=== PATIENT | female | born 1960 | race Caucasian/White ===

== ENCOUNTER 2016-06-21 07:03 | Day surgery (SDC) | payer OTHER ==
[2016-06-15 11:47] LABS: HEMATOCRIT 44.4 % (36.0-47.0); HEMOGLOBIN 14.8 g/dL (12.0-15.5); MEAN CORPUSCULAR HEMOGLOBIN 31.6 pg (27.0-33.4); MEAN CORPUSCULAR HGB CONC 33.4 g/dL (32.0-36.0); MEAN CORPUSCULAR VOLUME 95 fl (80-97); RED CELL DISTRIBUTION WIDTH 13.9 % (11.5-14.0); WHITE BLOOD COUNT 4.9 10^3/uL (4.0-10.5)
[2016-06-15 12:19] LABS: ANION GAP 11 (5-19); BLOOD UREA NITROGEN 17 mg/dL (7-20); CALCIUM 10.2 mg/dL (8.4-10.2); CARBON DIOXIDE 26 mmol/L (22-30); CHLORIDE 104 mmol/L (98-107); CREATININE RESULT 0.58 mg/dL (0.52-1.25); GLUCOSE 70 mg/dL (75-110); POTASSIUM 4.5 mmol/L (3.6-5.0); SODIUM 140.8 mmol/L (137-145)
[~2016-06-21 07:03] MED LIST: CEFAZOLIN SODIUM 1 GM in DEXTROSE 5%-WATER 50 ML IV PRN; LACTATED RINGERS 1000 ML IV PRN; LIDOCAINE 0.5% INJ-PF (5 MG/ML) 50 ML SDV SUBCUT PRN; NORMAL SALINE 1000 ML 1,000 ML IV PRN
[2016-06-21] MEDS ORDERED: BUPIVACAINE HCL 0.25 % INJ/PF (2.5 MG/1 ML) 30 ML VIAL ONE (07:35)
[2016-06-21] MEDS ORDERED: ONDANSETRON HCL INJ/PF 4 MG/2 ML SDV ONE (09:25)
[2016-06-21] MEDS ORDERED: DEXAMETHASONE SOD PHOSPHATE INJ 4 MG/1 ML VIAL ONE (09:25)
[2016-06-21] MEDS ORDERED: SUCCINYLCHOLINE CHLORIDE INJ 200 MG/10 ML VIAL ONE (09:25)
[2016-06-21] MEDS ORDERED: GLYCOPYRROLATE INJ 0.4 MG/2 ML VIAL ONE (09:25)
[2016-06-21] MEDS ORDERED: NEOSTIGMINE METHYLSULFATE 10 MG/10 ML VIAL ONE (09:25)
[2016-06-21] MEDS ORDERED: ROCURONIUM BROMIDE INJ 50 MG/5 ML VIAL IV ONE (09:25)
[2016-06-21] MEDS ORDERED: FENTANYL CITRATE INJ/PF 250 MCG/5 ML AMPULE ONE (09:55)
[2016-06-21] MEDS ORDERED: HYDROMORPHONE HCL INJ/PF 2 MG/ML AMPULE ONE (09:55)
[2016-06-21] MEDS ORDERED: ACETAMINOPHEN 100 ML IV ONE (09:56)
[2016-06-21] MEDS ORDERED: PROPOFOL INJ 200 MG/20 ML VIAL IV ONE (09:56)
[2016-06-21] MEDS ORDERED: EPHEDRINE SULFATE INJ 50 MG/1 ML AMPULE ONE (09:56)
[2016-06-21] MEDS ORDERED: MIDAZOLAM 2 MG/2 ML INJ ONE (09:56)
[2016-06-21] MEDS ORDERED: DIPHENHYDRAMINE HCL 50 MG/ML VIAL IV PRN (10:43)
[2016-06-21] MEDS ORDERED: MEPERIDINE HCL/PF INJ 25 MG/1 ML DISP.SYRIN IV PRN (10:43)
[2016-06-21] MEDS ORDERED: OXYCODONE-ACETAMINOPHEN 5-325 MG TABLET PO PRN ×3 (10:43→11:59)
[2016-06-21] MEDS ORDERED: FENTANYL CITRATE INJ/PF 100 MCG/2 ML AMPUL IV PRN ×3 (10:43)
[2016-06-21] MEDS ORDERED: MORPHINE SULFATE 10 MG/ML INJ IV PRN (10:43)
[2016-06-21] MEDS ORDERED: PROMETHAZINE HCL INJ 25 MG/1 ML VIAL IV PRN ×2 (10:43)
[2016-06-21] MEDS ORDERED: ONDANSETRON HCL INJ/PF 4 MG/2 ML SDV IV PRN (11:59)
[2016-06-21] MEDS: FENTANYL CITRATE INJ/PF 100 MCG/2 ML AMPUL ONE ×2 (12:32→12:37)
[2016-06-21] MEDS ORDERED: ENOXAPARIN SODIUM INJ 40 MG/0.4 ML DISP.SYRIN SUBCUT ONE (13:00)
[2016-06-21] MEDS: MORPHINE SULFATE 10 MG/ML INJ IV PRN ×3 (14:42→23:20)
--- NOTE | 2016-06-21 17:52 | Operative Report ---
Operative Report DATE OF SURGERY: 06/21/16 PREOPERATIVE DIAGNOSIS: Incisional hernia POSTOPERATIVE DIAGNOSIS: Incisional hernia OPERATION: Laparoscopic incisional hernia repair with mesh SURGEON: ROBBIE ANDREWS ANESTHESIA: GA TISSUE REMOVED OR ALTERED: None COMPLICATIONS: None ESTIMATED BLOOD LOSS: minimal INTRAOPERATIVE FINDINGS: Supraumbilical 5 cm hernia defect with herniated omentum. Omental adhesions to the midline. PROCEDURE: Informed consent was obtained. Patient was brought to the operating room placed on the operating room table in supine position. After satisfactory induction of general anesthesia patient's abdomen was prepped and draped in usual sterile fashion. A subxiphoid midline incision was made and dissection carried out through the fascia and the peritoneal cavity entered without difficulty. Jacobson trocar was inserted pneumoperitoneum produced with good patient toleration. Two 5 mm trochars were placed in the left lateral abdomen and these trochars removed to the right lateral abdomen near the end of the case for the fixation of the mesh. Laparoscopic view demonstrated dense midline adhesions consisting of omentum. These adhesions were taken down taking great care to avoid injury to the underlying bowel. The lower abdomen looked good with no hernias however at the supraumbilical region there was a 5 x 5 cm hernia. Hemostasis appeared to be good. A 15 x 15 cm Covidien parietex composite mesh was used. It was affixed at 4 quadrants using trans-fascial sutures. It was affixed circumferentially using absorbable tacking device. Of note the insufflation pressure was reduced prior to the fixation. The mesh laid flat with excellent coverage. Hemostasis appeared excellent. All trochars were removed under the direct vision a laparoscope to ensure hemostasis. The Jacobson trocar site fascial defect was closed with interrupted Vicryl sutures. Skin was closed with subcuticular interrupted Monocryl sutures. Marcaine was injected at the port sites. Patient tolerated procedure well with no apparent complications and was taken to the recovery area in stable condition.
--- NOTE | 2016-06-21 18:08 | PDOC PROGRESS REPORT ---
Subjective Progress Note for:: 06/21/16 Subjective:: Feels well. Mild abdominal pain. Physical Exam Vital Signs: Temp Pulse Resp BP Pulse Ox 98.2 F 57 L 16 113/62 93 06/21/16 17:30 06/21/16 17:30 06/21/16 17:30 06/21/16 17:30 06/21/16 17:30 Intake & Output 06/20/16 06/21/16 06/22/16 06:59 06:59 06:59 Intake Total 1450 Output Total 165 Balance 1285 Weight 71.67 kg General appearance: PRESENT: no acute distress Respiratory exam: PRESENT: clear to auscultation dominik Cardiovascular exam: PRESENT: RRR GI/Abdominal exam: PRESENT: other - Soft, nondistended, appropriate tenderness at the mid abdomen. Musculoskeletal exam: PRESENT: other - No tenderness no swelling Results Laboratory Results: 06/15/16 10:53 06/15/16 10:53 Assessment & Plan - Diagnosis (1) Incisional hernia Is this a current diagnosis for this admission?: YesPlan: Status post laparoscopic incisional hernia repair with mesh. Patient looks good. Will recheck in the morning if she is not nauseated will start diet in the morning. Encourage ambulation.
[2016-06-21] MEDS: DEXTROSE 5%-1/2 NORMAL SALINE 1,000 ML IV PRN (18:59)
[2016-06-22] MEDS: MORPHINE SULFATE 10 MG/ML INJ IV PRN ×3 (03:53→13:13)
[2016-06-22] MEDS ORDERED: ENOXAPARIN SODIUM INJ 40 MG/0.4 ML DISP.SYRIN SUBCUT SCH (08:00)
[2016-06-22] MEDS: DEXTROSE 5%-1/2 NORMAL SALINE 1,000 ML IV PRN (12:28)
[2016-06-22] MEDS ORDERED: ALBUTEROL SULFATE HFA (90 MCG/PUFF) 200 PUFF/8.5 GM MDI IH ONE (12:30)
[2016-06-22] MEDS ORDERED: FLUTICASONE/SALMETEROL DISKUS 250-50 MCG/DOSE IH ONE (13:00)
--- NOTE | 2016-06-22 13:03 | PDOC DISCHARGE SUMMARY ---
Discharge Summary (SDC) - Discharge Final Diagnosis: incisional hernia Date of Surgery: 06/21/16 Discharge Date: 06/22/16 Condition: Good Treatment or Instructions: Laparoscopic incisional hernia repair with mesh. May discharge patient home. Follow-up with me in 2 weeks. Stay active but avoid strenuous activity. Advance diet as tolerated to solid diet at home. If constipated after 2 more days may take laxative. Call me for any problems. Prescriptions: Oxycodone HCl/Acetaminophen [Percocet 7.5-325 Mg Tablet] 1 each PO Q4HP PRN #30 tablet PRN Reason: For Pain Discharge Activity: Activity As Tolerated - Stay active but avoid strenuous activity. Report the Following to Your Physician Immediately: Vomiting, Fever over 101 Degrees, Unusual Bleeding, Redness, Drainage-Foul Smelling
--- NOTE | 2016-06-22 13:04 | PDOC PROGRESS REPORT ---
Subjective Progress Note for:: 06/22/16 Subjective:: Feels well. No nausea and no abdominal distention. Tolerating clear liquids well. Physical Exam Vital Signs: Temp Pulse Resp BP Pulse Ox 98.2 F 57 L 16 130/64 H 92 06/22/16 11:42 06/22/16 11:42 06/22/16 11:42 06/22/16 11:42 06/22/16 11:42 Intake & Output 06/21/16 06/22/16 06/23/16 06:59 06:59 06:59 Intake Total 1550 Output Total 365 Balance 1185 Weight 72 kg 72 kg GI/Abdominal exam: PRESENT: other - Soft, nondistended, appropriate tenderness. Results Laboratory Results: 06/15/16 10:53 06/15/16 10:53 Assessment & Plan - Diagnosis (1) Incisional hernia Is this a current diagnosis for this admission?: YesPlan: Doing well tolerating liquids well. Abdomen soft. Will discharge patient home. Encourage activity at home. Follow-up in a couple weeks.
[2016-06-22 14:01] VITALS: BP 101/44
[2016-06-22] MEDS ORDERED: ALBUTEROL SULFATE HFA (90 MCG/PUFF) 200 PUFF/8.5 GM MDI IH SCH (22:00)
[2016-06-22] MEDS ORDERED: FLUTICASONE/SALMETEROL DISKUS 250-50 MCG/DOSE IH SCH (22:00)
== END 2016-06-22 14:20 | disposition home or self-care (01) ==
LOC: OROUT 07:03 → 2N 13:17 → OROUT 06-22 14:20
PROVIDERS: ATTEND Surgery
PROC: 0WUF4JZ Supplement Abdominal Wall with Synthetic Substitute, Percutaneous Endoscopic Approach (ICD-10-PCS; principal; 2016-06-21 10:00)
DX: K43.2 Incisional hernia without obstruction or gangrene (principal); J45.909 Unspecified asthma, uncomplicated; Z79.51 Long term (current) use of inhaled steroids
CPT/HCPCS: 36415; 85027; 80048; 49654; C1781; J2250; J0690; J3490 ×4; J1100; J3010 ×2; J2270 ×2; J1650 ×2; J1170; J0330; J2405; J2704; J0131; 752

== ENCOUNTER 2017-11-07 10:53 | Emergency (ER) | payer SELFPAY ==
--- NOTE | 2017-11-07 11:12 | ER Document Report ---
ED Medical Screen (RME) - General Chief Complaint: Abdominal Pain Stated Complaint: ABDOMINAL PAIN Time Seen by Provider: 11/07/17 11:03 Mode of Arrival: Ambulatory Information source: Patient TRAVEL OUTSIDE OF THE [place] IN LAST 30 DAYS: No - HPI Notes: 11/07/17 11:09 57-year-old female presents emergency department with complaints of left lower quadrant abdominal pain and bright red blood per rectum. Patient states that the abdominal pain started 3 days ago. It has been constant in nature. Patient describes the pain as a sharp and stabbing sensation located in the LLQ. No radiation of the pain. No alleviating or exacerbating factors. Patient states that today she had bright red blood per rectum. Patient states that she has had a bowel resection secondary to diverticulitis in the past. Patient states that her pains feels similar to previous. I have greeted and performed a rapid initial assessment of this patient. A comprehensive ED assessment and evaluation of the patient, analysis of test results and completion of the medical decision making process will be conducted by additional ED providers. PHYSICAL EXAMINATION: GENERAL: Well-appearing, well-nourished and in no acute distress. HEAD: Atraumatic, normocephalic. EYES: Pupils equal round extraocular movements intact, conjunctiva are normal. ENT: Nares patent NECK: Normal range of motion LUNGS: No respiratory distress Musculoskeletal: Normal range of motion NEUROLOGICAL: Normal speech, normal gait. PSYCH: Normal mood, normal affect. SKIN: Warm, Dry, normal turgor, no rashes or lesions noted. - Related Data Allergies/Adverse Reactions: cat dander Allergy (Intermediate, Verified 11/07/17 10:55) Sneezing feathers Allergy (Intermediate, Verified 11/07/17 10:55) Sneezing Past Medical History - Past Medical History Cardiac Medical History: Denies: Hx Coronary Artery Disease, Hx Heart Attack, Hx Hypertension, Hx Pulmonary Embolism Pulmonary Medical History: Reports: Hx Asthma - ADVAIR, VENTOLIN Denies: Hx Bronchitis, Hx COPD, Hx Pneumonia, Hx Respiratory Failure, Hx Sleep Apnea, Hx Tuberculosis Neurological Medical History: Denies: Hx Cerebrovascular Accident, Hx Seizures Renal/ Medical History: Denies: Hx End Stage Renal Disease, Hx Kidney Stones, Hx Peritoneal Dialysis GI Medical History: Denies: Hx Crohn's Disease, Hx Gastroesophageal Reflux Disease, Hx Hiatal Hernia, Hx Irritable Bowel, Hx Liver Failure, Hx Pancreatitis , Hx Ulcer Musculoskeltal Medical History: Denies Hx Arthritis Past Surgical History: Reports: Hx Hysterectomy, Hx Tonsillectomy. Denies: Hx Appendectomy, Hx Bowel Surgery, Hx Section, Hx Cholecystectomy, Hx Colostomy, Hx Coronary Artery Bypass Graft, Hx Gastric Bypass Surgery, Hx Herniorrhaphy, Hx Mastectomy, Hx Pacemaker, Hx Tubal Ligation - Immunizations Hx Diphtheria, Pertussis, Tetanus Vaccination: Yes Physical Exam - Vital signs Vitals: Temp Pulse Resp BP Pulse Ox 97.8 F 72 16 139/71 H 96 11/07/17 10:58 11/07/17 10:58 11/07/17 10:58 11/07/17 10:58 11/07/17 10:58 Course - Vital Signs Vital signs: Temp Pulse Resp BP Pulse Ox 97.8 F 72 16 139/71 H 96 11/07/17 10:58 11/07/17 10:58 11/07/17 10:58 11/07/17 10:58 11/07/17 10:58 Doctor's Discharge - Discharge Referrals: FELIPE SIMONS MD [Primary Care Provider] - Follow up as needed
[2017-11-07 11:47] LABS: ABSOLUTE EOSINOPHILS # (AUTO) 0.1 10^3/uL (0.0-0.6); ABSOLUTE LYMPHOCYTES (AUTO) 1.6 10^3/uL (0.5-4.7); ABSOLUTE MONOCYTES (AUTO) 0.6 10^3/uL (0.1-1.4); ABSOLUTE NEUT (AUTO) 3.2 10^3/uL (1.7-8.2); BASOPHILS % (AUTO) 0.2 % (0-2); EOSINOPHILS % (AUTO) 1.7 % (0-6); HEMOGLOBIN 14.5 g/dL (12.0-15.5); LYMPHOCYTES % (AUTO) 29.6 % (13-45); MEAN CORPUSCULAR HEMOGLOBIN 32.3 pg (27.0-33.4); MEAN CORPUSCULAR HGB CONC 34.6 g/dL (32.0-36.0); MEAN CORPUSCULAR VOLUME 93 fl (80-97); PLATELET COUNT 248 10^3/uL (150-450); RED CELL DISTRIBUTION WIDTH 13.7 % (11.5-14.0); SEGMENTED NEUTROPHILS % (AUTO) 57.5 % (42-78); TOTAL CELLS COUNTED % (AUTO) 100 %; WHITE BLOOD COUNT 5.5 10^3/uL (4.0-10.5)
--- NOTE | 2017-11-07 11:57 | ER Document Report ---
ED General - General Chief Complaint: Abdominal Pain Stated Complaint: ABDOMINAL PAIN Time Seen by Provider: 11/07/17 11:03 Mode of Arrival: Ambulatory TRAVEL OUTSIDE OF THE [place] IN LAST 30 DAYS: No - HPI Notes: 57-year-old female presents with left lower quadrant sharp pain 8/10 without radiation started a day and a half ago nothing is made it better or worse. It is been associated with an episode of bright red blood per rectum this morning. One time no additional episodes of bright red blood per rectum. Patient denies fatigue shortness of breath chest pain or cough. Has history of diverticulitis in the past. Concerned she may have another episode of diverticulitis. - Related Data Allergies/Adverse Reactions: cat dander Allergy (Intermediate, Verified 11/07/17 10:55) Sneezing feathers Allergy (Intermediate, Verified 11/07/17 10:55) Sneezing Past Medical History - General Information source: Patient - Social History Smoking Status: Current Every Day Smoker Chew tobacco use (# tins/day): No Frequency of alcohol use: Heavy Drug Abuse: Marijuana Family History: None Patient has suicidal ideation: No Patient has homicidal ideation: No - Past Medical History Cardiac Medical History: Denies: Hx Coronary Artery Disease, Hx Heart Attack, Hx Hypertension, Hx Pulmonary Embolism Pulmonary Medical History: Reports: Hx Asthma - ADVAIR, VENTOLIN Denies: Hx Bronchitis, Hx COPD, Hx Pneumonia, Hx Respiratory Failure, Hx Sleep Apnea, Hx Tuberculosis Neurological Medical History: Denies: Hx Cerebrovascular Accident, Hx Seizures Renal/ Medical History: Denies: Hx End Stage Renal Disease, Hx Kidney Stones, Hx Peritoneal Dialysis GI Medical History: Denies: Hx Crohn's Disease, Hx Gastroesophageal Reflux Disease, Hx Hiatal Hernia, Hx Irritable Bowel, Hx Liver Failure, Hx Pancreatitis , Hx Ulcer Musculoskeletal Medical History: Denies Hx Arthritis Past Surgical History: Reports: Hx Hysterectomy, Hx Tonsillectomy. Denies: Hx Appendectomy, Hx Bowel Surgery, Hx Section, Hx Cholecystectomy, Hx Colostomy, Hx Coronary Artery Bypass Graft, Hx Gastric Bypass Surgery, Hx Herniorrhaphy, Hx Mastectomy, Hx Pacemaker, Hx Tubal Ligation - Immunizations Hx Diphtheria, Pertussis, Tetanus Vaccination: Yes Review of Systems - Review of Systems Notes: REVIEW OF SYSTEMS: CONSTITUTIONAL: -fevers, -chills EENT: -eye pain, -difficulty swallowing, -nasal congestion CARDIOVASCULAR: -chest pain, -syncope. RESPIRATORY: -cough, -SOB GASTROINTESTINAL: +abdominal pain, -nausea, -vomiting, -diarrhea GENITOURINARY: -dysuria, -hematuria MUSCULOSKELETAL: -back pain, -neck pain SKIN: -rash or skin lesions. HEMATOLOGIC: -easy bruising or bleeding. LYMPHATIC: -swollen, enlarged glands. NEUROLOGICAL: -altered mental status or loss of consciousness, -headache, - neurologic symptoms PSYCHIATRIC: -anxiety, -depression. ALL OTHER SYSTEMS REVIEWED AND NEGATIVE. Physical Exam - Vital signs Vitals: Temp Pulse Resp BP Pulse Ox 97.8 F 72 16 139/71 H 96 11/07/17 10:58 11/07/17 10:58 11/07/17 10:58 11/07/17 10:58 11/07/17 10:58 - Notes Notes: PHYSICAL EXAMINATION: GENERAL: Well-appearing, well-nourished and in no acute distress. HEAD: Atraumatic, normocephalic. EYES: Pupils equal round and reactive to light, extraocular movements intact, sclera anicteric, conjunctiva are normal. ENT: nares patent, oropharynx clear without exudates. Moist mucous membranes. NECK: Normal range of motion, supple without lymphadenopathy LUNGS: Breath sounds clear to auscultation bilaterally and equal. No wheezes rales or rhonchi. HEART: Regular rate and rhythm without murmurs ABDOMEN: Left lower quadrant tenderness, negative Streeter's EXTREMITIES: Normal range of motion, no pitting or edema. No cyanosis. NEUROLOGICAL: Cranial nerves grossly intact. Normal speech, normal gait. Normal sensory and motor exams. PSYCH: Normal mood, normal affect. SKIN: Warm, Dry, normal turgor, no rashes or lesions noted. Course - Re-evaluation Re-evalutation: 11/07/17 12:43 Pleasant elderly female presents with left lower quadrant pain. Patient still tolerating oral intake. Not requiring IV analgesia at this time. In reviewing patient's records. She does have history of diverticulitis status post resection about 2 years ago. Patient's extensive lab workup shows preserved kidney function, negative leukocytosis. No dehydration. Patient does not want to be admitted to the hospital does not want additional CAT scan that she has had so many. Will diagnose patient with diverticulitis. Will initiate outpatient therapy with Augmentin, oral opioids and antiemetics. Patient encouraged a bland diet follow-up PCP strict return precautions - Vital Signs Vital signs: Temp Pulse Resp BP Pulse Ox 97.8 F 72 17 117/77 92 11/07/17 10:58 11/07/17 10:58 11/07/17 12:01 11/07/17 12:01 11/07/17 12:01 - Laboratory Result Diagrams: 11/07/17 11:20 11/07/17 11:20 Laboratory results interpreted by me: 11/07/17 11/07/17 11:20 11:20 Glucose 133 H Urine Ascorbic Acid 20 H - EKG Interpretation by Me Additional EKG results interpreted by me: 11/07/17 12:00 Normal sinus rhythm 63 bpm, no ST elevations or depressions, normal QRS, normal TN Discharge - Discharge Clinical Impression: Diverticulitis Condition: Stable Disposition: HOME, SELF-CARE Instructions: Diverticulitis ([facility]) Prescriptions: Amox Tr/Potassium Clavulanate [Augmentin 875-125 Tablet] 1 tab PO BID 10 Days tablet Ondansetron [Zofran Odt 4 mg Tablet] 1 - 2 tab PO Q4H PRN #15 tab.rapdis PRN Reason: For Nausea/Vomiting Oxycodone HCl [Oxycodone HCl 10 MG Tablet] 1 - 2 tab PO Q6H PRN #15 tablet PRN Reason: PAIN Referrals: FELIPE SIMONS MD [NO LOCAL MD] - Follow up as needed
[2017-11-07 12:16] LABS: ALANINE AMINOTRANSFERASE 32 U/L (9-52); ALBUMIN 4.6 g/dL (3.5-5.0); ALKALINE PHOSPHATASE 89 U/L (38-126); ANION GAP 14 (5-19); ASPARTATE AMINO TRANSFERASE 29 U/L (14-36); BILIRUBIN,DIRECT 0.3 mg/dL (0.0-0.4); BILIRUBIN,TOTAL 0.5 mg/dL (0.2-1.3); BLOOD UREA NITROGEN 19 mg/dL (7-20); CARBON DIOXIDE 27 mmol/L (22-30); CHLORIDE 104 mmol/L (98-107); GLUCOSE 133 mg/dL (75-110); LIPASE 99.4 U/L (23-300); SODIUM 144.6 mmol/L (137-145); TOTAL PROTEIN 7.7 g/dL (6.3-8.2)
[2017-11-07 12:33] LABS: APPEARANCE,URINE TURBID; BILIRUBIN,URINE NEGATIVE (NEGATIVE); COLOR,URINE YELLOW; GLUCOSE, URINE NEGATIVE (NEGATIVE); KETONES,URINE NEGATIVE (NEGATIVE); LEUKOCYTE ESTERASE,URINE NEGATIVE (NEGATIVE); NITRITE,URINE NEGATIVE (NEGATIVE); PROTEIN,URINE NEGATIVE (NEGATIVE); URINE SPECIFIC GRAVITY 1.023; UROBILINOGEN,URINE NEGATIVE mg/dL (<2.0)
[2017-11-07 13:03] VITALS: BP 121/71
--- NOTE | 2017-11-07 20:36 | EKG REPORT ---
SEVERITY:- ABNORMAL ECG - SINUS RHYTHM NONSPECIFIC INTRAVENTRICULAR CONDUCTION DELAY BORDERLINE INFERIOR Q WAVES : Confirmed by: Yadi Bauman MD 07-Nov-2017 20:36:24
== END 2017-11-07 13:08 | disposition home or self-care (01) ==
LOC: ER 10:53
DX: K57.92 Diverticulitis of intestine, part unspecified, without perforation or abscess without bleeding (principal); R10.32 Left lower quadrant pain; F17.200 Nicotine dependence, unspecified, uncomplicated; Z90.710 Acquired absence of both cervix and uterus
CPT/HCPCS: 36415; 80053; 81001; 83690; 85025; 93005; 93010; 99284

== ENCOUNTER 2018-05-25 10:40 | Emergency (ER) | payer OTHER ==
[2018-05-25] MEDS ORDERED: LIDOCAINE 5% (700 MG) TRANSDERMAL ADH..PATCH TP ONE (10:55)
[2018-05-25] MEDS ORDERED: IBUPROFEN 800 MG TABLET PO ONE (10:55)
--- NOTE | 2018-05-25 10:56 | ER Document Report ---
HPI - HPI Patient complains to provider of: fall Time Seen by Provider: 05/25/18 10:49 Onset: Yesterday Quality of pain: Achy Pain Level: 3 Context: Patient states that she stepped on an icy step yesterday slipping and falling landing on her bottom. Patient complains of low back and sacral pain. Patient also complains of right thumb tenderness. Patient is right-hand dominant. Associated Symptoms: Other - Right thumb, low back pain Exacerbated by: Movement Relieved by: Denies Similar symptoms previously: No Recently seen / treated by doctor: No - ROS ROS below otherwise negative: Yes Systems Reviewed and Negative: Yes All other systems reviewed and negative - NEURO Neurology: DENIES: Headache, Weakness - GASTROINTESTINAL Gastrointestinal: DENIES: Nausea - REPRODUCTIVE Reproductive: DENIES: : - MUSCULOSKELETAL Musculoskeletal: REPORTS: Extremity pain, Back Pain - DERM Skin Color: Ecchymosis Skin Problems: None Past Medical History - General Information source: Patient - Social History Smoking Status: Current Every Day Smoker Smoking Education Provided: Yes Frequency of alcohol use: Occasional Drug Abuse: Marijuana Occupation: food service director Family History: None - Past Medical History Cardiac Medical History: Pulmonary Medical History: Reports: Hx Asthma - ADVAIR, VENTOLIN Musculoskeletal Medical History: Denies Hx Arthritis Past Surgical History: Reports: Hx Bowel Surgery, Hx Hysterectomy, Hx Tonsillectomy - Immunizations Hx Diphtheria, Pertussis, Tetanus Vaccination: Yes Vertical Provider Document - CONSTITUTIONAL Agree With Documented VS: Yes Exam Limitations: No Limitations General Appearance: WD/WN, No Apparent Distress - INFECTION CONTROL TRAVEL OUTSIDE OF THE [place] IN LAST 30 DAYS: No - HEENT HEENT: Atraumatic, Normocephalic - NECK Neck: Normal Inspection - RESPIRATORY Respiratory: Breath Sounds Normal, No Respiratory Distress - CARDIOVASCULAR Cardiovascular: Regular Rate, Regular Rhythm Pulses: Normal: Radial - BACK Back: Abnormal Inspection - Lumbar, sacral midline tenderness, no step-offs or deformities. Patient with ecchymosis to sacral area. negative: CVA Tenderness- Right, CVA Tenderness-Left - MUSCULOSKELETAL/EXTREMETIES Musculoskeletal/Extremeties: MAEW, FROM, Tender - Tenderness to right thumb CMC joint, Edema - 1+ edema to right thumb. negative: Eccymosis - NEURO Level of Consciousness: Awake, Alert, Appropriate Motor/Sensory: No Motor Deficit, No Sensory Deficit Notes: No saddle anesthesia, normal gait - DERM Integumentary: Warm, Dry Course - Re-evaluation Re-evalutation: 05/25/18 12:02 Discuss results of patient's radiology reports with patient, patient encouraged to follow-up with orthopedics for any persistent pain or problems. Patient with degenerative changes noted, no acute fracture noted on x-ray. The patient presents with low back pain without signs of spinal cord compression, cauda equina syndrome, infection, aneurysm, or other serious etiology. The patient is neurologically intact. Given the extremely risk of these diagnoses further testing and evaluation for these possibilities does not appear to be indicated at this time. Patient has been instructed to return if the symptoms worsen or change in any way. - Vital Signs Vital signs: Temp Pulse Resp BP Pulse Ox 98.2 F 70 16 150/76 H 95 05/25/18 10:45 05/25/18 10:45 05/25/18 10:45 05/25/18 10:45 05/25/18 10:45 - Diagnostic Test Radiology reviewed: Image reviewed, Reports reviewed Discharge - Discharge Clinical Impression: Fall Qualifiers: Encounter type: initial encounter Qualified Code(s): W19.XXXA - Unspecified fall, initial encounter Low back pain Qualifiers: Chronicity: acute Back pain laterality: bilateral Sciatica presence: without sciatica Qualified Code(s): M54.5 - Low back pain Sacral contusion Qualifiers: Encounter type: initial encounter Qualified Code(s): S30.0XXA - Contusion of lower back and pelvis, initial encounter Sprain of right thumb Qualifiers: Encounter type: initial encounter Sprain of finger site: unspecified site Qualified Code(s): S63.601A - Unspecified sprain of right thumb, initial encounter Condition: Stable Disposition: HOME, SELF-CARE Instructions: Arthritis ([facility]), Contusion ([facility]), Low Back Pain ([facility]), Oral Narcotic Medication ([facility]), Sprained Thumb ([facility]), Temporary Splint ([facility]) Additional Instructions: Return immediately for any new or worsening symptoms Followup with your primary care provider, call tomorrow to make a followup appointment Wear splint for the next 4 days and then remove. If still having pain follow-up with orthopedics for further evaluation Prescriptions: Hydrocodone/Acetaminophen [[place] 5-325 mg Tablet] 1 tab PO Q6 PRN #15 tablet PRN Reason: Naproxen [Naprosyn 250 Nmg Tablet] 1 tab PO BID #14 tablet Forms: Smoking Cessation Education, Return to Work Referrals: [facility] [Provider Group] - Follow up as needed
--- NOTE | 2018-05-25 11:59 | RADIOLOGY REPORT (SQ) ---
EXAM DESCRIPTION: FINGER RIGHT COMPLETED DATE/TIME: 05/25/2018 11:29 am REASON FOR STUDY: fall injured thumb COMPARISON: None. NUMBER OF VIEWS: Three views. TECHNIQUE: AP, lateral, and oblique images acquired of the right thumb. LIMITATIONS: None. FINDINGS: MINERALIZATION: Normal. BONES: No acute fracture or dislocation. There are old well corticated avulsion fragments off the do rsal and palmar base of the right thumb distal phalanx at the interphalangeal joint. Move SOFT TISSUES: No soft tissue swelling. No foreign body. No joint space widening at the 1st metacarp ophalangeal joint or interphalangeal joint. OTHER: No other significant finding. IMPRESSION: No acute fracture or malalignment. COMMENT: SITE OF TRAUMA/COMPLAINT MARKED/STAMP COMPLETED: YES. TECHNICAL DOCUMENTATION: JOB ID: [id number] [employer] All Rights Reserved Reading location - IP/workstation name: [email or web address]
--- NOTE | 2018-05-25 11:59 | RADIOLOGY REPORT (SQ) ---
EXAM DESCRIPTION: SACRUM AND COCCYX COMPLETED DATE/TIME: 05/25/2018 11:29 am REASON FOR STUDY: fall fall, injured tail bone/coccyx COMPARISON: Lumbar spine films same date NUMBER OF VIEWS: Three views. TECHNIQUE: AP, lateral, and tilt views of the sacrum and coccyx. LIMITATIONS: None. FINDINGS: MINERALIZATION: Normal. BONES: No acute fracture or dislocation. No worrisome bone lesions. SOFT TISSUES: No soft tissue swelling. No foreign body. OTHER: Mild right and left SI joint sclerosis IMPRESSION: No acute fracture or malalignment. TECHNICAL DOCUMENTATION: JOB ID: [id number] [employer]- All Rights Reserved Reading location - IP/workstation name: [email or web address]
--- NOTE | 2018-05-25 12:01 | RADIOLOGY REPORT (SQ) ---
EXAM DESCRIPTION: L SPINE WHOLE COMPLETED DATE/TIME: 05/25/2018 11:29 am REASON FOR STUDY: fall injury, low back pain COMPARISON: None. NUMBER OF VIEWS: Five views including obliques. TECHNIQUE: AP, lateral, oblique, and sacral radiographic images acquired of the lumbar spine. LIMITATIONS: None. FINDINGS: MINERALIZATION: Normal. SEGMENTATION: Normal. No transitional anatomy. ALIGNMENT: Degenerative convex leftward lumbar curvature with asymmetric high-grade disc space loss o f height on the right side at L1-2. VERTEBRAE: Maintained height. No fracture or worrisome bone lesion. DISCS: High-grade disc space narrowing on the right at L1-2 with adjacent vertebral body endplate scl erosis lower lumbar facet arthropathy left greater than right at L3-4 and L4-5. POSTERIOR ELEMENTS: Pedicles and facets are intact. No pars defect or posterior arch defects. HARDWARE: Rectosigmoid anastomotic radha in the pelvis. PARASPINAL SOFT TISSUES: Normal. PELVIS: Mild SI joint sclerosis bilaterally OTHER: No other significant finding. IMPRESSION: No acute findings TECHNICAL DOCUMENTATION: JOB ID: [id number] [employer]- All Rights Reserved Reading location - IP/workstation name: [email or web address]
[2018-05-25 12:12] VITALS: BP 141/73
== END 2018-05-25 12:34 | disposition home or self-care (01) ==
LOC: ER 10:40
DX: S30.0XXA Contusion of lower back and pelvis, initial encounter (principal); S63.601A Unspecified sprain of right thumb, initial encounter; Z90.710 Acquired absence of both cervix and uterus; W00.1XXA Fall from stairs and steps due to ice and snow, initial encounter
CPT/HCPCS: 72110; 72220; 99283

== ENCOUNTER 2018-08-27 09:26 | Observation (INO) | payer OTHER ==
[2018-08-27 09:42] LABS: ABSOLUTE EOSINOPHILS # (AUTO) 0.2 10^3/uL (0.0-0.6); ABSOLUTE LYMPHOCYTES (AUTO) 1.9 10^3/uL (0.5-4.7); ABSOLUTE MONOCYTES (AUTO) 0.5 10^3/uL (0.1-1.4); ABSOLUTE NEUT (AUTO) 3.1 10^3/uL (1.7-8.2); BASOPHILS % (AUTO) 0.3 % (0-2); EOSINOPHILS % (AUTO) 3.3 % (0-6); HEMATOCRIT 41.4 % (36.0-47.0); HEMOGLOBIN 13.9 g/dL (12.0-15.5); LYMPHOCYTES % (AUTO) 32.8 % (13-45); MEAN CORPUSCULAR HEMOGLOBIN 30.9 pg (27.0-33.4); MEAN CORPUSCULAR HGB CONC 33.6 g/dL (32.0-36.0); MEAN CORPUSCULAR VOLUME 92 fl (80-97); MONOCYTES % (AUTO) 8.7 % (3-13); PLATELET COUNT 236 10^3/uL (150-450); RED CELL DISTRIBUTION WIDTH 13.4 % (11.5-14.0); SEGMENTED NEUTROPHILS % (AUTO) 54.9 % (42-78); TOTAL CELLS COUNTED % (AUTO) 100 %; WHITE BLOOD COUNT 5.7 10^3/uL (4.0-10.5)
--- NOTE | 2018-08-27 09:56 | ER Document Report ---
ED General - General Chief Complaint: Chest Pain Stated Complaint: CHEST PAIN Time Seen by Provider: 08/27/18 09:46 TRAVEL OUTSIDE OF THE [place] IN LAST 30 DAYS: No - HPI Notes: Patient is a 57-year-old female with a history of asthma who presents the emergency department by EMS from her family providers office for chest tightness that was radiating to her left shoulder that began about 6 AM this morning. Patient was given aspirin and 1 nitro. Patient states that after the nitro the symptoms did significantly improve and she is currently pain-free. Patient states that she does have an occasional dry cough otherwise. She has been eating and drinking without difficulty. She is urinating normally and having normal bowel movements. No significant cardiopulmonary medical history. Denies any prolonged immobilization, distance travel, recent surgery/trauma, personal cancer history, hormone use, or previous DVT/PE. Denies any headache, fever, URI, sore throat, palpitations, syncope, shortness of breath, wheeze, dyspnea, abdominal pain, nausea/vomiting/diarrhea, urinary retention, dysuria, hematuria, back pain, or rash. - Related Data Allergies/Adverse Reactions: cat dander Allergy (Intermediate, Verified 08/27/18 09:39) Sneezing feathers Allergy (Intermediate, Verified 08/27/18 09:39) Sneezing Past Medical History - Social History Smoking Status: Unknown if Ever Smoked Family History: None Patient has suicidal ideation: No Patient has homicidal ideation: No - Past Medical History Cardiac Medical History: Denies: Hx Coronary Artery Disease, Hx Heart Attack, Hx Hypertension, Hx Pulmonary Embolism Pulmonary Medical History: Reports: Hx Asthma - ADVAIR, VENTOLIN Denies: Hx Bronchitis, Hx COPD, Hx Pneumonia, Hx Respiratory Failure, Hx Sleep Apnea, Hx Tuberculosis Neurological Medical History: Denies: Hx Cerebrovascular Accident, Hx Seizures Renal/ Medical History: Denies: Hx End Stage Renal Disease, Hx Kidney Stones, Hx Peritoneal Dialysis GI Medical History: Denies: Hx Crohn's Disease, Hx Gastroesophageal Reflux Disease, Hx Hiatal Hernia, Hx Irritable Bowel, Hx Liver Failure, Hx Pancreatitis, Hx Ulcer Musculoskeletal Medical History: Denies Hx Arthritis Past Surgical History: Reports: Hx Bowel Surgery, Hx Hysterectomy, Hx Tonsillectomy. Denies: Hx Appendectomy, Hx Section, Hx C holecystectomy, Hx Colostomy, Hx Coronary Artery Bypass Graft, Hx Gastric Bypass Surgery, Hx Herniorrhaphy, Hx Mastectomy, Hx Pacemaker, Hx Tubal Ligation - Immunizations Hx Diphtheria, Pertussis, Tetanus Vaccination: Yes Review of Systems - Review of Systems -: Yes All other systems reviewed and negative Physical Exam - Vital signs Vitals: Pulse Ox 97 08/27/18 09:29 - Notes Notes: PHYSICAL EXAMINATION: GENERAL: Well-appearing, well-nourished and in no acute distress. HEAD: Atraumatic, normocephalic. EYES: Pupils equal round and reactive to light, extraocular movements intact, sclera anicteric, conjunctiva are normal. ENT: Nares patent and without discharge. oropharynx clear without exudates. No tonsilar hypertrophy or erythema. Moist mucous membranes. NECK: Normal range of motion, supple without lymphadenopathy LUNGS: Breath sounds clear to auscultation bilaterally and equal. No wheezes rales or rhonchi. HEART: Regular rate and rhythm without murmurs, rubs, gallops. ABDOMEN: Soft, nontender, nondistended abdomen. No guarding, no rebound. N ormal bowel sounds present. No CVA tenderness bilaterally. Musculoskeletal: FROM to passive/active. Strength 5+/5. Deepa neg. No asymmetry to LE's. Extremities: No cyanosis, clubbing, or edema b/l. Peripheral pulses 2+. Capillary refill less than 3 seconds. NEUROLOGICAL: Normal speech, normal gait. PSYCH: Normal mood, normal affect. SKIN: Warm, Dry, normal turgor, no rashes or lesions noted. Course - Re-evaluation Re-evalutation: 08/27/18 11:40 Patient is an afebrile, well-hydrated, 57-year-old female who presents emergency department for atypical chest pain, since resolved. Vitals are currently acceptable without significant tachycardia, tachypnea, or hypoxia. PE is otherwise unremarkable. Patient is nontoxic-appearing and is tolerating p.o. without difficulty. Labs, EKG, chest x-ray unremarkable at this time. Patient was given nitro which did improve and resolve her chest discomfort earlier. Pt will be admitted to [facility], accepted by Dr. Valerio, for chest pain obs. - Vital Signs Vital signs: Temp Pulse Resp BP Pulse Ox 98.1 F 16 126/67 H 94 08/27/18 09:32 08/27/18 10:01 08/27/18 10:01 08/27/18 10:01 - Laboratory Result Diagrams: 08/27/18 08:50 08/27/18 08:50 Discharge - Discharge Clinical Impression: Atypical chest pain Condition: Stable Disposition: ADMITTED INPATIENT Admitting Provider: Iman (Hospitalist) Unit Admitted: Telemetry
[2018-08-27 10:02] LABS: ALANINE AMINOTRANSFERASE 20 U/L (9-52); ALBUMIN 4.4 g/dL (3.5-5.0); ALKALINE PHOSPHATASE 86 U/L (38-126); ANION GAP 12 (5-19); ASPARTATE AMINO TRANSFERASE 26 U/L (14-36); BILIRUBIN,DIRECT 0.2 mg/dL (0.0-0.4); BILIRUBIN,TOTAL 0.5 mg/dL (0.2-1.3); BLOOD UREA NITROGEN 20 mg/dL (7-20); CALCIUM 10.1 mg/dL (8.4-10.2); CARBON DIOXIDE 26 mmol/L (22-30); CHLORIDE 103 mmol/L (98-107); CREATINE KINASE 49 U/L (30-135); GLUCOSE 108 mg/dL (75-110); POTASSIUM 4.5 mmol/L (3.6-5.0); SODIUM 140.8 mmol/L (137-145); TOTAL PROTEIN 7.3 g/dL (6.3-8.2)
[2018-08-27 10:14] LABS: CREATINE KINASE MB 0.94 ng/mL (<4.55)
[2018-08-27 10:18] LABS: TROPONIN I < 0.012 ng/mL
--- NOTE | 2018-08-27 10:35 | RADIOLOGY REPORT (SQ) ---
EXAM DESCRIPTION: CHEST SINGLE VIEW COMPLETED DATE/TIME: 08/27/2018 9:49 am REASON FOR STUDY: chest pain COMPARISON: 12/07/2015. NUMBER OF VIEWS: One view. TECHNIQUE: Single frontal radiographic view of the chest acquired. LIMITATIONS: None. FINDINGS: LUNGS AND PLEURA: No opacities, masses or pneumothorax. No pleural effusion. MEDIASTINUM AND HILAR STRUCTURES: No masses. Contour normal. HEART AND VASCULAR STRUCTURES: Heart normal in size. Normal vasculature. BONES: No acute findings. HARDWARE: None in the chest. OTHER: No other significant finding. IMPRESSION: NO SIGNIFICANT RADIOGRAPHIC FINDING IN THE CHEST. TECHNICAL DOCUMENTATION: JOB ID: [id number] [employer]- All Rights Reserved Reading location - IP/workstation name: [email or web address]
[2018-08-27] MEDS ORDERED: IBUPROFEN 600 MG TABLET PO PRN (12:39)
[2018-08-27] MEDS ORDERED: ALBUTEROL SULFATE HFA (90 MCG/PUFF) 8 GM MDI (1 MDI/ER DISP) IH PRN (12:39)
--- NOTE | 2018-08-27 12:57 | PDOC H&P ---
History of Present Illness Admission Date/PCP: 08/27/18 11:50 History of Present Illness: ANGELINA PANCHAL is a 57 year old female with a history of asthma and who is a current everyday smoker who presents with a chief complaint of chest pain. She said the pain started this morning around 6:00 while she was at work at [employer]. She said it was a pretty busy day and they were short staffed. She said that she did not really have a pain, it was more of a tightness, and she thought it was her asthma starting to flareup. She did not have her inhaler in her pocket for it was not known whether or not it would have responded to a bronchodilator at that point. She then went to her primary care doctor's office when it opened and was subsequently sent to the ER. She said the discomfort was more in her left shoulder at that point. She said in the ER she was given an aspirin and nitroglycerin and she felt like the discomfort resolved she has not had any recurrence of his symptoms. She says she is never had anything like that happen before. She is never had a stress test or cardiac catheterization or any other cardiac surgery. As noted above, despite the fact that she has asthma she is a every day smoker, she says she is cut back to about a half a pack a day recently because she is trying to quit but she has been smoking for about 30 years. She said her mother has a history of angina but to her knowledge has never been diagnosed with any coronary artery disease and has never had a heart attack. Her father had a heart attack at age 40. Past Medical History Cardiac Medical History: Denies: Coronary Artery Disease, Myocardial Infarction, Hypertension, Pulmonary Embolism Pulmonary Medical History: Reports: Asthma - ADVAIR, VENTOLIN Denies: Bronchitis, Chronic Obstructive Pulmonary Disease (COPD), Pneumonia, Respiratory Failure, Sleep Apnea, Tuberculosis Neurological Medical History: Denies: Seizures Renal/ Medical History: Denies: End Stage Renal Disease GI Medical History: Denies: Crohn's Disease, Gastroesophageal Reflux Disease, Hiatal Hernia Musculoskeltal Medical History: Denies: Arthritis Hematology: Denies: Anemia Past Surgical History Past Surgical History: Reports: Hysterectomy, Tonsillectomy Denies: Appendectomy, Section, Cholecystectomy, Colostomy, Coronary Artery Bypass Graft, Gastric Bypass Surgery, Herniorrhaphy, Mastectomy, Pacemaker, Tubal Ligation Social History Smoking Status: Unknown if Ever Smoked Frequency of Alcohol Use: Occasional Hx Recreational Drug Use: Yes Hx Prescription Drug Abuse: No Family History Family History: CAD Parental Family History Reviewed: Yes - Father had ME age 40, mother has history of angina Children Family History Reviewed: Yes - None known Sibling(s) Family History Reviewed.: Yes - None known Medication/Allergy Home Medications: Fluticasone/Salmeterol [Advair 250-50 Diskus 14 Dose/Diskus] 1 puff IH Q12 06/22/16 Ondansetron [Zofran Odt 4 mg Tablet] 1 - 2 tab PO Q4H PRN #15 tab.rapdis 11/07/17 Albuterol Sulfate [Ventolin Hfa 8 gm Mdi (1 Mdi/ER Disp)] 2 puff IH ASDIR PRN 08/27/18 Gabapentin [Neurontin] 800 mg PO BID 08/27/18 Ibuprofen [Motrin 600 mg Tablet] 600 mg PO Q8HP PRN 08/27/18 Ipratropium/Albuterol Sulfate [Duoneb 3 ml Ampul] 3 ml NEB RTQ6 08/27/18 Oxycodone HCl [Oxycodone HCl 10 MG Tablet] 1 tab PO Q4H PRN 08/27/18 Allergies/Adverse Reactions: cat dander Allergy (Intermediate, Verified 08/27/18 09:39) Sneezing feathers Allergy (Intermediate, Verified 08/27/18 09:39) Sneezing Review of Systems All systems: reviewed and no additional remarkable complaints except as stated - All systems were reviewed and were negative except as noted in the HPI Physical Exam Vital Signs: Temp Pulse Resp BP Pulse Ox 98.1 F 16 126/67 H 94 08/27/18 09:32 08/27/18 10:01 08/27/18 10:01 08/27/18 10:01 Intake & Output 08/26/18 08/27/18 08/28/18 06:59 06:59 06:59 Weight 72.121 kg General appearance: PRESENT: no acute distress, cooperative, well-nourished Head exam: PRESENT: atraumatic, normocephalic Eye exam: PRESENT: EOMI, PERRLA. ABSENT: conjunctival injection, nystagmus, scleral icterus Ear exam: PRESENT: normal external ear exam Mouth exam: PRESENT: moist, neck supple Throat exam: ABSENT: post pharyngeal erythema Neck exam: PRESENT: full ROM. ABSENT: carotid bruit, JVD, lymphadenopathy, meningismus, tenderness, thyromegaly Respiratory exam: PRESENT: clear to auscultation dominik, symmetrical, unlabored. ABSENT: accessory muscle use, prolonged expiratory phas, rales, rhonchi, tachypnea, wheezes Cardiovascular exam: PRESENT: RRR, +S1, +S2. ABSENT: diastolic murmur, systolic murmur Pulses: PRESENT: normal carotid pulses Vascular exam: PRESENT: normal capillary refill GI/Abdominal exam: PRESENT: normal bowel sounds, soft. ABSENT: distended, guarding, rebound, tenderness Extremities exam: ABSENT: clubbing, pedal edema Musculoskeletal exam: PRESENT: ambulatory, normal inspection. ABSENT: deformity Neurological exam: PRESENT: alert, awake, oriented to person, oriented to place, oriented to time, oriented to situation, CN II-XII grossly intact. ABSENT: motor sensory deficit Psychiatric exam: PRESENT: anxious, normal mood Skin exam: PRESENT: dry, warm Results Laboratory Results: 08/27/18 08:50 08/27/18 08:50 08/27/18 08/27/18 08:50 08:50 WBC 5.7 RBC 4.50 Hgb 13.9 Hct 41.4 MCV 92 MCH 30.9 MCHC 33.6 RDW 13.4 Plt Count 236 Seg Neutrophils % 54.9 Lymphocytes % 32.8 Monocytes % 8.7 Eosinophils % 3.3 Basophils % 0.3 Absolute Neutrophils 3.1 Absolute Lymphocytes 1.9 Absolute Monocytes 0.5 Absolute Eosinophils 0.2 Absolute Basophils 0.0 Sodium 140.8 Potassium 4.5 Chloride 103 Carbon Dioxide 26 Anion Gap 12 BUN 20 Creatinine 0.56 Est GFR ( Amer) > 60 Est GFR (Non-Af Amer) > 60 Glucose 108 Calcium 10.1 Total Bilirubin 0.5 AST 26 ALT 20 Alkaline Phosphatase 86 Total Protein 7.3 Albumin 4.4 08/27/18 08/27/18 08:50 08:50 Creatine Kinase 49 CK-MB (CK-2) 0.94 Troponin I < 0.012 Impressions: Chest X-Ray 08/27/18 09:33 IMPRESSION: NO SIGNIFICANT RADIOGRAPHIC FINDING IN THE CHEST. Assessment and Plan - Diagnosis (1) Chest pain Qualifiers: Chest pain type: other chest pain Qualified Code(s): R07.89 - Other chest pain; R07.8 - Other chest pain Is this a current diagnosis for this admission?: Yes Plan: She had chest pressure and pain in the left shoulder while at work engaged in physical activity. This sounds like typical chest pain. It was relieved by nitroglycerin. She is a smoker. She has a family history of ME. She did not want to stay, citing concerns over having a lack of insurance and having other things needed to get done at home, but given the circumstances and her history, she would probably benefit from a cardiac ischemic work-up. She has a pretty typical sounding story with some risk factors for coronary artery disease. We will trend her troponins and keep her on telemetry. Will order stress test for tomorrow. Aspirin daily. - Time Time Spent with patient: 35 or more minutes
[2018-08-27] MEDS ORDERED: ALBUTEROL SULFATE HFA (90 MCG/PUFF) 200 PUFF/8.5 GM MDI IH PRN (14:52)
[2018-08-27] MEDS ORDERED: (PENDING PHARMACY ID) (Fluticasone/Salmeterol 1 PUFF) IH SCH (22:00)
--- NOTE | 2018-08-27 23:03 | EKG REPORT ---
SEVERITY:- ABNORMAL ECG - SINUS RHYTHM NONSPECIFIC INTRAVENTRICULAR CONDUCTION DELAY : Confirmed by: Shahid Matos 27-Aug-2018 23:03:06
[2018-08-28 07:23] LABS: CHOLESTEROL 240.96 mg/dL (0-200); TRIGLYCERIDES 131 mg/dL (<150)
[2018-08-28 07:34] LABS: DIRECT LDL 152 mg/dL (<100)
[2018-08-28] MEDS ORDERED: FLUTICASONE/VILANTEROL 200-25 MCG/DOSE IH SCH (10:00)
[2018-08-28] MEDS ORDERED: ASPIRIN 325 MG TABLET PO SCH (10:00)
[2018-08-28] MEDS ORDERED: REGADENOSON INJ 0.4 MG/5 ML DISP.SYRIN IV ONE (12:24)
[2018-08-28 15:03] VITALS: BP 121/68
--- NOTE | 2018-08-30 20:41 | PDOC DISCHARGE SUMMARY ---
General - Admit/Disc Date/PCP Admission Date/Primary Care Provider: 08/27/18 11:50 Discharge Date: 08/28/18 - Discharge Diagnosis (1) Atypical chest pain Is this a current diagnosis for this admission?: Yes Summary: The patient serial troponins as well as Cardiolite stress test were negative. She was discharged home and encouraged to take an aspirin daily and follow-up with her primary care provider. (2) Hypercholesterolemia Is this a current diagnosis for this admission?: Yes Summary: A lipid profile was performed. The patient's total cholesterol was 240 with an LDL of 150. I did not start a new medication but I did encourage the patient to discuss this with her primary care provider at follow-up. - Additional Information Resuscitation Status: Full Code Discharge Diet: Cardiac Discharge Activity: Activity As Tolerated Home Medications: Fluticasone/Salmeterol [Advair 250-50 Diskus 14 Dose/Diskus] 1 puff IH Q12 06/22/16 Albuterol Sulfate [Ventolin Hfa 8 gm Mdi (1 Mdi/ER Disp)] 2 puff IH Q6HP PRN MDD 8 PUFFS/DAY 08/27/18 Gabapentin [Neurontin] 800 mg PO BID 08/27/18 Ipratropium/Albuterol Sulfate [Duoneb 3 ml Ampul] 3 ml NEB RTQ6HP PRN 08/27/18 Ondansetron [Zofran Odt 4 mg Tablet] 4 mg PO Q12HP PRN 08/27/18 Oxycodone HCl [Oxycodone HCl 10 MG Tablet] 1 tab PO Q4HP PRN 08/27/18 Aspirin [Aspirin 325 mg Tablet] 325 mg PO DAILY tablet 08/28/18 History of Present Illness Patient complains of: Chest pain History of Present Illness: ANGELINA PANCHAL is a 57 year old female with a history of asthma and is a current smoker. She states that at approximately 6:00 this morning (while at work at [employer]) she was quite busy. She felt some tightness in her chest and thought it might of been her asthma. She does not have a rescue inhaler with her and so this was not attempted. Later in the morning when her primary care provider's office was open she presented. She was sent immediately to the emergency department. She did report that aspirin and sublingual nitroglycerin resolved the pain. Because of her symptom complex and risk factors she was referred to the hospital service for admission. Hospital Course Hospital Course: She had an unremarkable hospital course. She had no recurrence of pain. Serial troponins were negative as well as her Cardiolite stress test. She was discharged with instructions to follow-up with her primary care provider's office. I did encourage her to take 1 aspirin daily (81 mg) and consider statin therapy for markedly elevated LDL levels. Physical Exam Vital Signs: Temp Pulse Resp BP Pulse Ox 98.5 F 72 12 121/68 96 08/28/18 15:00 08/28/18 15:00 08/28/18 15:00 08/28/18 15:00 08/28/18 15:00 Intake & Output 08/29/18 08/30/18 08/31/18 06:59 06:59 06:59 Intake Total 236 Balance 236 General appearance: PRESENT: no acute distress, cooperative, well-developed Head exam: PRESENT: atraumatic, normocephalic Respiratory exam: PRESENT: clear to auscultation dominik, symmetrical, unlabored. ABSENT: accessory muscle use, rales, rhonchi, tachypnea, wheezes Cardiovascular exam: PRESENT: RRR, +S1, +S2 GI/Abdominal exam: PRESENT: normal bowel sounds, soft. ABSENT: distended, guarding, tenderness Rectal exam: ABSENT: deferred Gentrourinary exam: ABSENT: indwelling catheter Extremities exam: ABSENT: calf tenderness, joint swelling, pedal edema Musculoskeletal exam: PRESENT: ambulatory Neurological exam: PRESENT: alert, awake, oriented to person, oriented to place, oriented to time, oriented to situation, CN II-XII grossly intact. ABSENT: motor sensory deficit Psychiatric exam: PRESENT: appropriate affect, normal mood. ABSENT: agitated, anxious Focused psych exam: ABSENT: delusional, restlessness Results Laboratory Results: 08/27/18 08:50 08/27/18 08:50 08/27/18 08/27/18 08/27/18 08:50 08:50 13:41 Creatine Kinase 49 CK-MB (CK-2) 0.94 Troponin I < 0.012 < 0.012 08/27/18 08/28/18 19:38 01:43 Creatine Kinase CK-MB (CK-2) Troponin I < 0.012 < 0.012 Impressions: Chest X-Ray 08/27/18 09:33 IMPRESSION: NO SIGNIFICANT RADIOGRAPHIC FINDING IN THE CHEST. Qualifiers - * PATIENT BEING DISCHARGED WITH ANY OF THE FOLLOWING DIAGNOSIS: No Acute Heart Failure Is this a Heart Failure Patient?: No Plan Time Spent: Greater than 30 Minutes
--- NOTE | 2018-08-31 21:14 | DRAGON STRESS TEST REPORT ---
Intravenous Lexiscan Cardiolite stress test using single photon emmision computerized tomography. Date of procedure: 08/28/2018. Ordering Provider: Dr. Yung Valerio. Patient's status: In Patient. Indication: Chest pain. Coronary risk factors: Age, tobacco abuse disorder, and family history of coronary artery disease. Resting EKG: Sinus Rhythm. Nonspecific T changes anterolateral leads. Stress EKG: No changes of ischemia The patient had no chest pain or discomfort, and there were no arrhythmias seen.. Reason for termination: Protocol. Conclusions: Normal EKG and hemodynamic response to IV Lexiscan. Nuclear data: At rest the patient was given 10.73 millicuries of technetium 99m sestamibi injected intravenously. As per protocol rest non gated SPECT images were obtained. Subsequently the patient was given intravenous Lexiscan at a dose of 0.4 mg in 5 mL intravenously, followed by flush with normal saline. Subsequently the stress dose of 33.0 millicuries of technetium 99m sestamibi was injected intravenously. As per protocol stress gated images were obtained. Nuclear interpretation: Review of images showed that there is a small apical septal defect in both the rest and stress images, with normal motion contraction and thickening thickening by gated study. Hence this is deemed to be a soft tissue attenuation artifact. The rest of the segments of the myocardium had normal perfusion at rest, and normal perfusion post stress with IV Lexiscan. All segments of the myocardium had normal motion, contraction, and thickening by gated study. T. I D. ratio was normal at 1.09. There is no transient ischemic dilatation of the left ventricle. Computer read rest, and stress left ventricular ejection fraction were 53 %, and 4 %, respectively. Conclusion: 1. There is no scintigraphic evidence of Lexiscan induced myocardial ischemia. 2. There is no scintigraphic evidence of myocardial infarction/scar. 3. Small area of apical septal fixed defect secondary to soft tissue attenuation artifact. Recommendations: Aggressive risk factor modification, and treating the underlying co- morbidities. MTDD
== END 2018-08-28 15:43 | disposition home or self-care (01) ==
LOC: ER 09:26 → INTOOBSV 11:50 → EH 11:50 → 4N 14:05
PROVIDERS: ADMIT Family Medicine; ATTEND Family Medicine
DX: R07.89 Other chest pain (principal); E78.00 Pure hypercholesterolemia, unspecified; J45.909 Unspecified asthma, uncomplicated; F17.210 Nicotine dependence, cigarettes, uncomplicated; M25.512 Pain in left shoulder; R05 Cough; Z82.49 Family history of ischemic heart disease and other diseases of the circulatory system; Z79.899 Other long term (current) drug therapy
CPT/HCPCS: 93005; 99285; 36415 ×2; 82553; 82550; 85025; 80053; 84484 ×2; 83036; 80061; 93017; 71045; 78452; 93010; G0378 ×3; A9500; J2785; J3490 ×2; Q9969

== ENCOUNTER 2020-04-25 16:11 | Emergency (ER) | payer SELFPAY ==
[2020-04-25] MEDS ORDERED: DIPH/PERTUSS(ACELL)/TETANUS VAC/PF 0.5 ML SYR (>=10YO) IM ONE (17:48)
--- NOTE | 2020-04-25 17:48 | ER Document Report ---
ED Medical Screen (RME) - General Chief Complaint: Head Injury with LOC Stated Complaint: FALL Time Seen by Provider: 04/25/20 17:41 Mode of Arrival: Ambulatory Information source: Patient Notes: HPI; 59-year-old female presented to the emergency room had injury. Patient states she was trying to lift up her garbage can did not realize it was full of water it bounced back hitting her in her forehead causing a laceration. She denies falling to the ground, she denies any loss of consciousness. No nausea, no vomiting, no dizziness no headache. Unknown last tetanus shot. PE: Alert and oriented x3. There is a deep 4 cm horizontal laceration to the mid forehead. No raccoon eyes, no guardado signs. PERRLA, EOMI. Lungs: Clear to auscultation without rales, rhonchi, wheezes. Heart: Regular rate rhythm without murmurs, rubs, gallops. I have greeted and performed a rapid initial assessment of this patient. A comprehensive ED assessment and evaluation of the patient, analysis of test results and completion of the medical decision making process will be conducted by additional ED providers. I have specifically instructed the patient or family members with the patient to immediately return to any nursing staff should anything change in the patient's condition or with their chief complaint. TRAVEL OUTSIDE OF THE [place] IN LAST 30 DAYS: No - Related Data Allergies/Adverse Reactions: cat dander Allergy (Intermediate, Verified 08/27/18 09:39) Sneezing feathers Allergy (Intermediate, Verified 08/27/18 09:39) Sneezing Past Medical History - Past Medical History Cardiac Medical History: Denies: Hx Coronary Artery Disease, Hx Heart Attack, Hx Hypertension, Hx Pulmonary Embolism Pulmonary Medical History: Reports: Hx Asthma Denies: Hx Bronchitis, Hx COPD, Hx Pneumonia, Hx Respiratory Failure, Hx Sleep Apnea, Hx Tuberculosis Neurological Medical History: Denies: Hx Cerebrovascular Accident, Hx Seizures Renal/ Medical History: Denies: Hx End Stage Renal Disease, Hx Kidney Stones, Hx Peritoneal Dialysis GI Medical History: Denies: Hx Crohn's Disease, Hx Gastroesophageal Reflux Disease, Hx Hiatal Hernia, Hx Irritable Bowel, Hx Liver Failure, Hx Pancreatitis, Hx Ulcer Musculoskeltal Medical History: Denies Hx Arthritis Past Surgical History: Reports: Hx Bowel Surgery, Hx Hysterectomy, Hx Tonsillectomy. Denies: Hx Appendectomy, Hx Section, Hx Cholecystectomy, Hx Colostomy, Hx Coronary Artery Bypass Graft, Hx Gastric Bypass Surgery, Hx Herniorrhaphy, Hx Mastectomy, Hx Pacemaker, Hx Tubal Ligation - Immunizations Hx Diphtheria, Pertussis, Tetanus Vaccination: Yes Physical Exam - Vital signs Vitals: Temp Pulse Resp BP Pulse Ox 98.2 F 64 20 147/75 H 97 04/25/20 17:26 04/25/20 17:26 04/25/20 17:26 04/25/20 17:26 04/25/20 17:26 Course - Vital Signs Vital signs: Temp Pulse Resp BP Pulse Ox 98.2 F 64 20 147/75 H 97 04/25/20 17:26 04/25/20 17:26 04/25/20 17:26 04/25/20 17:26 04/25/20 17:26
--- NOTE | 2020-04-25 19:03 | RADIOLOGY REPORT (SQ) ---
EXAM DESCRIPTION: CT HEAD WITHOUT IMAGES COMPLETED DATE/TIME: 04/25/2020 6:02 pm REASON FOR STUDY: head trauma COMPARISON: None. TECHNIQUE: Axial images acquired through the brain without intravenous contrast. Images reviewed wi th bone, brain and subdural windows. Additional sagittal and coronal reconstructions were generated. Images stored on PACS. All CT scanners at this facility use dose modulation, iterative reconstruction, and/or weight based d osing when appropriate to reduce radiation dose to as low as reasonably achievable (ALARA). [facility]: Dose Right [facility]: CareDose [facility]: Dose Right [facility]: Teradose 4D [facility]: Smart RoomReveal RADIATION DOSE: CT Rad equipment meets quality standard of care and radiation dose reduction techniq ues were employed. CTDIvol: 53.2 mGy. DLP: 1044 mGy-cm. mGy. LIMITATIONS: None. FINDINGS: VENTRICLES: Normal size and contour. CEREBRUM: No masses. No hemorrhage. No midline shift. No evidence for acute infarction. Normal gra y/white matter differentiation. No areas of low density in the white matter. CEREBELLUM: No masses. No hemorrhage. No alteration of density. No evidence for acute infarction. EXTRAAXIAL SPACES: No fluid collections. No masses. ORBITS AND GLOBE: No intra- or extraconal masses. Normal contour of globe without masses. CALVARIUM: No fracture. PARANASAL SINUSES: No fluid or mucosal thickening. SOFT TISSUES: Possible frontal laceration. OTHER: No other significant finding. IMPRESSION: Possible frontal laceration. No acute intracranial imaging findings. EVIDENCE OF ACUTE STROKE: NO. COMMENT: Quality ID # [id number]: Final reports with documentation of one or more dose reduction techniques (e.g., Automated exposure control, adjustment of the mA and/or kV according to patient size, use of iterative reconstruction technique) TECHNICAL DOCUMENTATION: JOB ID: [id number] 2010 [employer]- All Rights Reserved Reading location - IP/workstation name: [email or web address]
[2020-04-26] MEDS ORDERED: DIPH/PERTUSS(ACELL)/TETANUS VAC/PF 0.5 ML SYR (>=10YO) IM ONE (03:00)
[2020-04-26] MEDS ORDERED: LIDOCAINE 1%/EPINEPHRINE INJ 20 ML VIAL INJ ONE (03:02)
--- NOTE | 2020-04-26 03:04 | ER Document Report ---
ED General - General Chief Complaint: Laceration Stated Complaint: FALL Time Seen by Provider: 04/25/20 17:41 Mode of Arrival: Ambulatory Information source: Patient Notes: Patient presents to the ER for evaluation of laceration to the forehead that occurred when she accidentally struck her face with a garbage can. She states injury occurred approximately 3:00 this afternoon. She denies positive loss of consciousness. She denies neck pain. She denies headache. She denies dizziness. She denies nausea or vomiting. Nursing notes reviewed and past medical, social, and family histories reviewed and validated. TRAVEL OUTSIDE OF THE [place] IN LAST 30 DAYS: No - Related Data Allergies/Adverse Reactions: cat dander Allergy (Intermediate, Verified 04/25/20 21:37) Sneezing feathers Allergy (Intermediate, Verified 04/25/20 21:37) Sneezing Past Medical History - General Information source: Patient - Social History Smoking Status: Current Every Day Smoker Frequency of alcohol use: Heavy Drug Abuse: None Lives with: Family Family History: CAD Patient has suicidal ideation: No Patient has homicidal ideation: No - Past Medical History Cardiac Medical History: Denies: Hx Coronary Artery Disease, Hx Heart Attack, Hx Hypertension, Hx Pulmonary Embolism Pulmonary Medical History: Reports: Hx Asthma Denies: Hx Bronchitis, Hx COPD, Hx Pneumonia, Hx Respiratory Failure, Hx Sleep Apnea, Hx Tuberculosis EENT Medical History: Reports: None Neurological Medical History: Denies: Hx Cerebrovascular Accident, Hx Seizures Endocrine Medical History: Reports: None Renal/ Medical History: Denies: Hx End Stage Renal Disease, Hx Kidney Stones, Hx Peritoneal Dialysis Malignancy Medical History: Reports: None GI Medical History: Denies: Hx Crohn's Disease, Hx Gastroesophageal Reflux Disease, Hx Hiatal Hernia, Hx Irritable Bowel, Hx Liver Failure, Hx Pancreatitis, Hx Ulcer Musculoskeletal Medical History: Denies Hx Arthritis Skin Medical History: Reports None Psychiatric Medical History: Reports: None Traumatic Medical History: Reports: None Infectious Medical History: Reports: None Past Surgical History: Reports: Hx Bowel Surgery, Hx Hysterectomy, Hx Tonsillectomy. Denies: Hx Appendectomy, Hx Section, Hx Cholecystectomy, Hx Colostomy, Hx Coronary Artery Bypass Graft, Hx Gastric Byp ass Surgery, Hx Herniorrhaphy, Hx Mastectomy, Hx Pacemaker, Hx Tubal Ligation - Immunizations Immunizations up to date: Yes Hx Diphtheria, Pertussis, Tetanus Vaccination: Yes Review of Systems - Review of Systems Notes: Constitutional: Negative for fever. HENT: Negative for sore throat. Eyes: Negative for visual changes. Cardiovascular: Negative for chest pain. Respiratory: Negative for shortness of breath. Gastrointestinal: Negative for abdominal pain, vomiting or diarrhea. Genitourinary: Negative for dysuria. Musculoskeletal: Negative for back pain. Skin: Positive for facial laceration. Neurological: Negative for headaches, weakness or numbness. 10 point ROS negative except as marked above and in HPI. Physical Exam - Vital signs Vitals: Temp Pulse Resp BP Pulse Ox 98.2 F 64 20 147/75 H 97 04/25/20 17:26 04/25/20 17:26 04/25/20 17:26 04/25/20 17:26 04/25/20 17:26 - Notes Notes: CONSTITUTIONAL: Well appearing in no acute distress SKIN: There is approximately 10 cm laceration horizontally across the forehead. No active bleeding noted. EYES: Extraocular movements are grossly intact, clear conjunctiva HENT: Normocephalic, atraumatic, moist mucus membranes NECK: No obvious swelling, normal range of motion PULMONARY: Normal chest rise and fall, no respiratory distress or stridor CARDIOVASCULAR: Regular rate, distal extremities are warm and well perfused NEUROLOGIC: Normal speech, moves all extremities MUSCULOSKELETAL: No gross deformities, atraumatic PSYCHIATRIC: Normal mood and affect Course - Re-evaluation Re-evalutation: 04/26/20 04:15 Rechecked patient who has responded well to treatment in the ER. Discussed with patient: results, diagnosis, treatment plan, and need for follow-up. Return to the emergency department warnings were given. All questions and concerns were addressed. The plan is agreed with and understood. Patient is stable and ready for discharge. - Vital Signs Vital signs: Temp Pulse Resp BP Pulse Ox 98.2 F 70 20 144/76 H 96 04/26/20 01:18 04/26/20 01:18 04/25/20 17:26 04/26/20 01:18 04/26/20 01:18 - Laboratory Results Critical Laboratory Results Reviewed: No Critical Results - Radiology Results Critical Radiology Results Reviewed: No Critical Results Procedures - Laceration/Wound Repair Head Time completed: 04:00 Wound length (cm): 10 Wound's Depth, Shape: Irregular Laceration pre-procedure: Sterile PPE donned, Renetta applied Anesthetic type: 1% Lidocaine w/epi Volume Anesthetic (mLs): 3 Wound explored: Clean Irrigated w/ Saline (mLs): 20 Wound Debrided: Minimal Wound Repaired With: Sutures Suture Size/Type: 5:0, Ethilon Number of Sutures: 11 Layer Closure?: No Post-procedure NV exam normal: Yes Complications: No Discharge - Discharge Clinical Impression: Facial laceration Qualifiers: Encounter type: initial encounter Qualified Code(s): S01.81XA - Laceration without foreign body of other part of head, initial encounter Condition: Stable Disposition: HOME, SELF-CARE Instructions: Laceration Care ([facility]) Additional Instructions: Return to the ER in 10 days for suture removal. Forms: Return to Work
[2020-04-26 04:32] VITALS: BP 168/84
== END 2020-04-26 04:30 | disposition home or self-care (01) ==
LOC: ER 16:11
DX: S01.81XA Laceration without foreign body of other part of head, initial encounter (principal); W22.8XXA Striking against or struck by other objects, initial encounter; F17.200 Nicotine dependence, unspecified, uncomplicated; J45.909 Unspecified asthma, uncomplicated; Z23 Encounter for immunization; Z91.048 Other nonmedicinal substance allergy status
CPT/HCPCS: 99284; 90471; 70450; 90715; 12015; J3490